=== PATIENT | female | born 1960 | race Caucasian/White ===

== ENCOUNTER 2016-07-19 12:20 | Emergency (ER) | payer OTHER | END 2016-07-19 12:31 | disposition home or self-care (01) | LOC: ER 12:20 | DX: M75.92 Shoulder lesion, unspecified, left shoulder (principal); F17.200 Nicotine dependence, unspecified, uncomplicated; Z88.5 Allergy status to narcotic agent; Z88.8 Allergy status to other drugs, medicaments and biological substances | CPT/HCPCS: 93005; 96372; 99284; J1170 ==